=== PATIENT | female | born 1965 | race Caucasian/White ===

== ENCOUNTER 2021-02-13 18:23 | Inpatient (IN) | payer SELFPAY ==
[2021-02-13 19:01] LABS: #Basophils 0.1 thou/uL (0.0-0.2); #Eosinphils 0.2 thou/uL (0.0-0.7); #Lymphocytes 4.7 thou/uL (1.20-3.40); #Monocytes 0.7 thou/uL (0.11-0.59); #Neutrophils 7.1 thou/uL (1.40-6.50); %Basophils 0.7 % (0.0-1.0); %Eosinophils 1.3 % (0.0-10.0); %Lymphocytes 36.7 % (21.0-51.0); %Monocytes 5.6 % (0.0-10.0); %Neutrophils 55.6 % (42.0-75.0); Hemoglobin 12.2 g/dL (12.0-16.0); Mean Corpuscular HGB CONC 33.9 g/dL (32.0-36.0); Mean Corpuscular Hemoglobin 29.4 pg (27.0-31.0); Mean Corpuscular Volume 86.7 fL (78.0-98.0); Mean Platelet Volume 7.4 fL (7.4-10.4); Platelet Count 310 thou/uL (130-400); RBC Distribution Width 13.2 % (11.5-14.5); Red Blood Cell (RBC) Count 4.15 mill/uL (4.20-5.40); White Blood Cell (WBC) Count 12.8 thou/uL (4.8-10.8)
[2021-02-13 19:21] LABS: ALT (SGPT) 9 U/L (8-55); AST (SGOT) 15 U/L (5-34); Alkaline Phosphatase 81 U/L (40-110); Anion Gap 13 mmol/L (10-20); BUN (Urea Nitrogen) 11 mg/dL (9.8-20.1); Bilirubin, Total 0.4 mg/dL (0.2-1.2); Calc. Creatinine Clearance 0 mL/min (70-130); Calcium 9.4 mg/dL (7.8-10.44); Carbon Dioxide 27 mmol/L (22-29); Chloride 101 mmol/L (98-107); Globulin 3.8 g/dL (2.4-3.5); Glucose 74 mg/dL (70-105); Potassium 3.8 mmol/L (3.5-5.1); Protein, Total 7.8 g/dL (6.0-8.3); Sodium 137 mmol/L (136-145)
[2021-02-13 22:39] LABS: Troponin I 0.014 ng/mL (< 0.028)
[2021-02-13] MEDS ORDERED: Dextrose 50% Abboject 50 ML SYRINGE SLOW IVP PRN (22:51)
[2021-02-13] MEDS ORDERED: HumaLOG 300 UNITS/3 ML VIAL SC PRN ×2 (22:51)
[2021-02-13] MEDS ORDERED: Ondansetron ODT 4 MG TAB PO PRN (22:51)
[2021-02-13] MEDS ORDERED: Dextrose 5% in Water 1,000 ML IV PRN (22:51)
[2021-02-13] MEDS ORDERED: Ondansetron PF 4 MG/2 ML Vial IVP PRN (22:51)
[2021-02-14 00:19] VITALS: BMI 36.2
[2021-02-14] MEDS ORDERED: Labetalol HCl 100 MG/20 ML VIAL SLOW IVP PRN (00:55)
[2021-02-14 06:18] LABS: Troponin I 0.013 ng/mL (< 0.028)
[2021-02-14 06:20] LABS: Anion Gap 11 mmol/L (10-20); BUN (Urea Nitrogen) 8 mg/dL (9.8-20.1); Calc. Creatinine Clearance 116 mL/min (70-130); Calcium 9.7 mg/dL (7.8-10.44); Carbon Dioxide 29 mmol/L (22-29); Chloride 100 mmol/L (98-107); Glucose 104 mg/dL (70-105); Potassium 3.9 mmol/L (3.5-5.1); Sodium 136 mmol/L (136-145)
[2021-02-14 06:58] LABS: #Basophils 0.1 thou/uL (0.0-0.2); #Eosinphils 0.1 thou/uL (0.0-0.7); #Lymphocytes 3.9 thou/uL (1.20-3.40); #Monocytes 0.5 thou/uL (0.11-0.59); #Neutrophils 4.8 thou/uL (1.40-6.50); %Basophils 1.3 % (0.0-1.0); %Eosinophils 1.2 % (0.0-10.0); %Lymphocytes 41.4 % (21.0-51.0); %Monocytes 5.7 % (0.0-10.0); %Neutrophils 50.4 % (42.0-75.0); Hemoglobin 13.2 g/dL (12.0-16.0); Mean Corpuscular HGB CONC 32.4 g/dL (32.0-36.0); Mean Corpuscular Hemoglobin 28.2 pg (27.0-31.0); Mean Platelet Volume 7.9 fL (7.4-10.4); Platelet Count 315 thou/uL (130-400); RBC Distribution Width 13.3 % (11.5-14.5); Red Blood Cell (RBC) Count 4.67 mill/uL (4.20-5.40); White Blood Cell (WBC) Count 9.5 thou/uL (4.8-10.8)
[2021-02-14] MEDS: hydrALAZINE 20 MG/ML VIAL SLOW IVP PRN ×2 (08:59→11:30)
[2021-02-14] MEDS: Acetaminophen 325 MG TAB PO PRN (09:02)
[2021-02-14] MEDS: Enoxaparin Sodium 40 MG/0.4 ML SYRINGE SC SCH (09:02)
[2021-02-14] MEDS ORDERED: Amlodipine 5 MG TAB PO SCH (10:30)
[2021-02-14] MEDS ORDERED: Pantoprazole 40 MG VIAL IVP SCH (11:00)
[2021-02-14] MEDS ORDERED: hydrALAZINE 20 MG/ML VIAL SLOW IVP SCH (12:30)
[2021-02-14] MEDS: Promethazine HCl 6.25 MG in Sodium Chloride 0.9% 50 ML IVPB PRN ×2 (13:21→23:21)
[2021-02-14 13:41] LABS: SARS-CoV-2 PCR by NAA Not Detected (NotDetected)
[2021-02-14] MEDS ORDERED: niCARdipine 25 MG in Sodium Chloride 0.9% 250 ML 240 ML IVPB SCH (14:30)
[2021-02-14] MEDS ORDERED: Metoclopramide HCl 10 MG/2 ML VIAL IVP SCH (17:30)
[2021-02-14] MEDS: Pantoprazole 40 MG VIAL IVP SCH (20:19)
[2021-02-14 21:03] LABS: Bilirubin Negative (Negative); Blood, Urine Negative (Negative); Clarity Clear (Clear); Glucose, Urine (Dipstick) Normal (Negative); Ketone, Urine 10 mg/dL (Negative); Leukocyte Negative Leu/uL (Negative); Nitrite Negative (Negative); Protein, Urine (Dipstick) 20 mg/dL (Neg-Trace); RBC/HPF 0-3 HPF (0-3); Specific Gravity, Urine 1.017 (1.002-1.036); Squamous Epithelial 0-3 HPF (0-3); Urobilinogen Normal mg/dL (Less than 2); pH, Urine 7.5 (5.0-9.0)
[2021-02-14 21:04] LABS: Bacteria/HPF 1+ HPF (None Seen)
[2021-02-14 21:06] LABS: Urine Culture Reflex Yes Yes
[2021-02-15 04:01] LABS: Hemoglobin A1c 5.9 % (4.0-6.0)
[2021-02-15 04:21] LABS: ALT (SGPT) 11 U/L (8-55); AST (SGOT) 16 U/L (5-34); Alkaline Phosphatase 81 U/L (40-110); Anion Gap 15 mmol/L (10-20); BUN (Urea Nitrogen) 11 mg/dL (9.8-20.1); Bilirubin, Total 1.2 mg/dL (0.2-1.2); Calc. Creatinine Clearance 113 mL/min (70-130); Calcium 9.8 mg/dL (7.8-10.44); Carbon Dioxide 23 mmol/L (22-29); Chloride 99 mmol/L (98-107); Globulin 4.4 g/dL (2.4-3.5); Glucose 118 mg/dL (70-105); Magnesium 1.9 mg/dL (1.6-2.6); Potassium 3.8 mmol/L (3.5-5.1); Protein, Total 8.4 g/dL (6.0-8.3); Sodium 133 mmol/L (136-145)
[2021-02-15] MEDS: Pantoprazole 40 MG VIAL IVP SCH ×2 (08:38→20:20)
[2021-02-15] MEDS: Enoxaparin Sodium 40 MG/0.4 ML SYRINGE SC SCH (08:38)
[2021-02-15] MEDS ORDERED: Amlodipine 5 MG TAB PO SCH (09:00)
[2021-02-15] MEDS ORDERED: Pantoprazole 40 MG VIAL IVP SCH (09:00)
[2021-02-15] MEDS ORDERED: Bupropion 150 MG XL TAB PO SCH (09:45)
[2021-02-15] MEDS ORDERED: NIFEdipine XL 30 MG TAB PO SCH ×2 (12:30→21:00)
[2021-02-15] MEDS ORDERED: NIFEdipine XL 60 MG TAB PO SCH (21:00)
[2021-02-16 04:01] LABS: Anion Gap 15 mmol/L (10-20); BUN (Urea Nitrogen) 12 mg/dL (9.8-20.1); Calc. Creatinine Clearance 107 mL/min (70-130); Calcium 9.8 mg/dL (7.8-10.44); Carbon Dioxide 26 mmol/L (22-29); Chloride 99 mmol/L (98-107); Glucose 114 mg/dL (70-105); Potassium 4.1 mmol/L (3.5-5.1); Sodium 136 mmol/L (136-145)
[2021-02-16] MEDS: Acetaminophen 325 MG TAB PO PRN ×3 (07:29→19:37)
[2021-02-16] MEDS: NIFEdipine XL 90 MG TAB PO SCH (08:51)
[2021-02-16] MEDS: Pantoprazole 40 MG VIAL IVP SCH ×2 (08:51→21:26)
[2021-02-16] MEDS: Enoxaparin Sodium 40 MG/0.4 ML SYRINGE SC SCH (08:51)
[2021-02-16] MEDS: Bupropion 150 MG XL TAB PO SCH (08:52)
[2021-02-16] MEDS ORDERED: NIFEdipine XL 60 MG TAB PO SCH (09:00)
[2021-02-17 04:56] LABS: Anion Gap 14 mmol/L (10-20); BUN (Urea Nitrogen) 13 mg/dL (9.8-20.1); Calc. Creatinine Clearance 110 mL/min (70-130); Calcium 9.8 mg/dL (7.8-10.44); Carbon Dioxide 30 mmol/L (22-29); Chloride 98 mmol/L (98-107); Glucose 109 mg/dL (70-105); Magnesium 2.3 mg/dL (1.6-2.6); Potassium 3.6 mmol/L (3.5-5.1); Sodium 138 mmol/L (136-145)
[2021-02-17] MEDS: Bupropion 150 MG XL TAB PO SCH (08:44)
[2021-02-17] MEDS: NIFEdipine XL 90 MG TAB PO SCH (08:46)
[2021-02-17] MEDS: Enoxaparin Sodium 40 MG/0.4 ML SYRINGE SC SCH (08:46)
[2021-02-17] MEDS: Pantoprazole 40 MG VIAL IVP SCH (08:49)
[2021-02-17 11:31] VITALS: TEMP 98.3
[2021-02-17 16:30] VITALS: BP 171/86
== END 2021-02-17 17:44 | disposition home or self-care (01) | DRG 305 ==
LOC: ERS 18:23 → 2SW 20:43 → OBSVTOIN 20:43 → CCU 02-14 12:38 → 2NO 02-16 14:29
PROVIDERS: ADMIT Student in an Organized Health Care Education/Training Program; ATTEND Internal Medicine
DX: I16.1 Hypertensive emergency (principal); E87.1 Hypo-osmolality and hyponatremia; I16.0 Hypertensive urgency; E78.5 Hyperlipidemia, unspecified; D72.829 Elevated white blood cell count, unspecified; F41.9 Anxiety disorder, unspecified; F32.9 Major depressive disorder, single episode, unspecified; I44.1 Atrioventricular block, second degree; E11.43 Type 2 diabetes mellitus with diabetic autonomic (poly)neuropathy; K31.84 Gastroparesis; Z90.710 Acquired absence of both cervix and uterus
CPT/HCPCS: 36415; 36416; 71045; 74018; 80048; 80053; 81001; 83036; 83735; 83880; 84443; 84484; 85025; 87086; 93005; 93306; 94760; 96374; 96375; C9113; G0378; J0360; J1650; J2550; J2765; J7050; Q0162; U0003; U0005

== ENCOUNTER 2021-04-14 00:57 | Emergency (ER) | payer SELFPAY ==
[2021-04-14] MEDS ORDERED: Potassium Chloride 20 MEQ TAB ONE (02:58)
[2021-04-14] MEDS ORDERED: Aspirin 325 MG TAB ONE (05:59)
[2021-04-14 09:25] LABS: ALT (SGPT) 13 U/L (8-55); AST (SGOT) 16 U/L (5-34); Albumin 3.8 g/dL (3.5-5.0); Alkaline Phosphatase 72 U/L (40-110); Anion Gap 12 mmol/L (10-20); BUN (Urea Nitrogen) 17 mg/dL (9.8-20.1); Bilirubin, Total 0.3 mg/dL (0.2-1.2); Calc. Creatinine Clearance 0 mL/min (70-130); Calcium 8.9 mg/dL (7.8-10.44); Carbon Dioxide 25 mmol/L (22-29); Chloride 105 mmol/L (98-107); Globulin 3.4 g/dL (2.4-3.5); Glucose 120 mg/dL (70-105); Potassium 3.2 mmol/L (3.5-5.1); Protein, Total 7.2 g/dL (6.0-8.3); Sodium 139 mmol/L (136-145)
[2021-04-14 09:27] LABS: Troponin I 0.011 ng/mL (< 0.028)
[2021-04-14 09:29] LABS: Troponin I Less than 0.010 ng/mL (< 0.028)
[2021-04-14 11:22] LABS: Hemoglobin 11.5 g/dL (12.0-16.0); Mean Corpuscular Volume 88.3 fL (78.0-98.0); Red Blood Cell (RBC) Count 3.79 mill/uL (4.20-5.40)
[2021-04-14 11:23] LABS: #Basophils 0.1 thou/uL (0.0-0.2); #Eosinphils 0.1 thou/uL (0.0-0.7); #Lymphocytes 3.1 thou/uL (1.20-3.40); #Monocytes 0.5 thou/uL (0.11-0.59); #Neutrophils 4.2 thou/uL (1.40-6.50); %Basophils 1.6 % (0.0-1.0); %Eosinophils 1.3 % (0.0-10.0); %Lymphocytes 38.4 % (21.0-51.0); %Neutrophils 52.7 % (42.0-75.0); Mean Corpuscular HGB CONC 34.5 g/dL (32.0-36.0); Mean Corpuscular Hemoglobin 30.5 pg (27.0-31.0); Mean Platelet Volume 7.2 fL (7.4-10.4); Platelet Count 281 thou/uL (130-400); RBC Distribution Width 14.4 % (11.5-14.5)
== END 2021-04-14 03:12 | disposition home or self-care (01) ==
LOC: ERS 00:57
DX: R07.89 Other chest pain (principal); E11.9 Type 2 diabetes mellitus without complications
CPT/HCPCS: 71045; 80053; 84484; 85025

== ENCOUNTER 2022-02-10 18:37 | Emergency (ER) | payer SELFPAY ==
[2022-02-10 19:55] LABS: #Lymphocytes 1.3 thou/uL (1.20-3.40); #Monocytes 0.2 thou/uL (0.11-0.59); %Basophils 1.1 % (0.0-1.0); %Eosinophils 0.3 % (0.0-10.0); %Lymphocytes 37.2 % (21.0-51.0); %Monocytes 6.7 % (0.0-10.0); %Neutrophils 54.8 % (42.0-75.0); Hemoglobin 10.9 g/dL (12.0-16.0); Mean Corpuscular HGB CONC 33.1 g/dL (32.0-36.0); Mean Corpuscular Hemoglobin 30.5 pg (27.0-31.0); Mean Corpuscular Volume 92.1 fL (78.0-98.0); Mean Platelet Volume 7.3 fL (7.4-10.4); Platelet Count 225 thou/uL (130-400); RBC Distribution Width 13.2 % (11.5-14.5); Red Blood Cell (RBC) Count 3.59 mill/uL (4.20-5.40); White Blood Cell (WBC) Count 3.6 thou/uL (4.8-10.8)
[2022-02-10 19:57] LABS: Bacteria/HPF None Seen HPF (None Seen); Bilirubin Negative (Negative); Blood, Urine Negative (Negative); Clarity Clear (Clear); Glucose, Urine (Dipstick) Normal (Negative); Ketone, Urine Negative (Negative); Leukocyte Negative Leu/uL (Negative); Nitrite Negative (Negative); Protein, Urine (Dipstick) 30 mg/dL (Neg-Trace); RBC/HPF 0-3 HPF (0-3); Squamous Epithelial 0-3 HPF (0-3); Urobilinogen Normal mg/dL (Less than 2); WBC/HPF 0-3 HPF (0-3); pH, Urine 5.5 (5.0-9.0)
[2022-02-10 21:06] LABS: ALT (SGPT) 13 U/L (8-55); AST (SGOT) 36 U/L (5-34); Albumin 3.8 g/dL (3.5-5.0); Alkaline Phosphatase 66 U/L (40-110); Anion Gap 17 mmol/L (10-20); BUN (Urea Nitrogen) 11 mg/dL (9.8-20.1); Bilirubin, Total 0.5 mg/dL (0.2-1.2); Calc. Creatinine Clearance 0 mL/min (70-130); Calcium 8.7 mg/dL (7.8-10.44); Carbon Dioxide 25 mmol/L (22-29); Chloride 100 mmol/L (98-107); Estimated GFR 85; Globulin 3.5 g/dL (2.4-3.5); Glucose 112 mg/dL (70-105); Protein, Total 7.3 g/dL (6.0-8.3); Sodium 138 mmol/L (136-145)
== END 2022-02-10 21:11 | disposition home or self-care (01) ==
LOC: ERS 18:37
DX: U07.1 COVID-19 (principal); E11.9 Type 2 diabetes mellitus without complications; Z79.84 Long term (current) use of oral hypoglycemic drugs; Z79.899 Other long term (current) drug therapy
CPT/HCPCS: 36415; 80053; 81003; 81015; 83690; 84484; 85025; 99284; U0003; U0005